=== PATIENT | female | born 1985 | race African-American/Black ===

== ENCOUNTER 2019-01-23 10:51 | Emergency (ER) | payer OTHER ==
[~2019-01-23] VITALS: Ht 157.5 cm; Wt 108.9 kg
[~2019-01-23 10:51] MED LIST: DOXY100C2 PO; NITR100C62 PO
[2019-01-23 11:13] VITALS: BP 179/81
--- NOTE | 2019-01-23 11:34 | PHYS DOC ---
Past Medical History Past Medical History: No Pertinent History Past Surgical History: No Surgical History Alcohol Use: Occasionally Drug Use: None Adult General Chief Complaint Chief Complaint: LOWER BACK PAIN OR INJURY HPI HPI Patient is a 33 year old female with no significant medical history who presents to the ED today complaining of 6 out of 10 sharp intermittent left low back pain nonradiating in nature that has been going on for month. Patient states the pain is worse when she is sitting on her left buttock. Patient states the pain is typically relieved by standing up and walking around. Patient denies any known injury. Denies any pain radiating to bilateral lower extremities, denies any numbness or tenderness to bilateral lower extremities, denies any loss of bowel bladder function. Review of Systems Review of Systems Constitutional: Denies fever or chills [] Eyes: Denies change in visual acuity, redness, or eye pain [] HENT: Denies nasal congestion or sore throat [] Respiratory: Denies cough or shortness of breath [] Cardiovascular: No additional information not addressed in HPI [] GI: Denies abdominal pain, nausea, vomiting, bloody stools or diarrhea [] : Denies dysuria or hematuria [] Musculoskeletal: Reports left low back pain Integument: Denies rash or skin lesions [] Neurologic: Denies headache, focal weakness or sensory changes [] All other systems were reviewed and found to be within normal limits, except as documented in this note. Allergies Allergies Allergies Coded Allergies Type Severity Reaction Last Updated Verified No Known Drug Allergies 10/18/13 No Physical Exam Physical Exam Constitutional: Well developed, well nourished, no acute distress, non-toxic appearance. [] HENT: Normocephalic, atraumatic, bilateral external ears normal, oropharynx moist, no oral exudates, nose normal. [] Eyes: PERRLA, EOMI, conjunctiva normal, no discharge. [] Neck: Normal range of motion, no tenderness, supple, no stridor. [] Cardiovascular:Heart rate regular rhythm, no murmur [] Lungs & Thorax: Bilateral breath sounds clear to auscultation [] Abdomen: Bowel sounds normal, soft, no tenderness, no masses, no pulsatile masses. [] Skin: Warm, dry, no erythema, no rash. [] Back: Diffuse paraspinal muscle tenderness the left lumbar spine, no midline lumbar spine tenderness, no CVA tenderness. Negative bilateral straight leg raises. Extremities: No tenderness, no cyanosis, no clubbing, ROM intact, no edema. [] Neurologic: Alert and oriented X 3, normal motor function, normal sensory function, no focal deficits noted. [] Psychologic: Affect normal, judgement normal, mood normal. [] Current Patient Data Vital Signs Vital Signs Date Time Temp Pulse Resp B/P (MAP) Pulse Ox O2 Delivery O2 Flow Rate FiO2 01/23/19 11:13 98.2 65 16 179/81 (113) 99 Room Air 98.2 Lab Values Laboratory Tests Test 01/23/19 11:17 Urine Color Yellow Urine Clarity Clear Urine pH 7.0 Urine Specific [place] 1.025 Urine Protein Negative mg/dL (NEG-TRACE) Urine Glucose (UA) Negative mg/dL (NEG) Urine Ketones (Stick) Negative mg/dL (NEG) Urine Blood Negative (NEG) Urine Nitrite Negative (NEG) Urine Bilirubin Negative (NEG) Urine Urobilinogen Dipstick 1.0 mg/dL (0.2 mg/dL) Urine Leukocyte Esterase Negative (NEG) Urine RBC 0 /HPF (0-2) Urine WBC 0 /HPF (0-4) Urine Squamous Epithelial Cells Mod /LPF Urine Bacteria 0 /HPF (0-FEW) POC Urine HCG, Qualitative Hcg negative (Negative) EKG EKG [] Radiology/Procedures Radiology/Procedures [] Course & Med Decision Making Course & Med Decision Making Pertinent Labs and Imaging studies reviewed. (See chart for details) This is a 33-year-old female patient presenting to the ED today complaining of left low back pain that began a month ago. Urine analysis is negative for infection. Patient then appears musculoskeletal. Will be discharged to home. Follow-up with PCP in 1-2 weeks. Dragon Disclaimer Dragon Disclaimer This electronic medical record was generated, in whole or in part, using a voice recognition dictation system. Departure Departure Impression: Primary Impression: Back pain Disposition: 01 HOME, SELF-CARE Condition: STABLE Referrals: UNKNOWN PCP NAME (PCP) Follow-up with your doctor in 1-2 weeks Patient Instructions: Back Pain, Adult Additional Instructions: You were evaluated in the emergency room for low back pain that appears musculoskeletal. Please take the prescribed medications as ordered. Follow-up with your doctor in 1-2 weeks. Come back to the ED at any point symptoms worsen. Scripts Methylprednisolone (MEDROL) 4 Mg Tab.ds.pk 1 PKG PO UD, #1 PKG Prov: NI MIRANDA APRN 01/23/19 Diclofenac Sodium (DICLOFENAC SODIUM) 50 Mg Tablet.dr 1 TAB PO BID, #20 TAB 0 Refills Prov: RUTHNI APRN 01/23/19 Cyclobenzaprine Hcl (CYCLOBENZAPRINE HCL) 10 Mg Tablet 1 TAB PO TID, #30 TAB Prov: NI MIRANDA APRN 01/23/19 Hydrocodone/Apap 5-325 (NORCO 5-325 TABLET) 1 Each Tablet 1 TAB PO Q6HRS, #8 TAB Prov: NI MIRANDA APRN 01/23/19 Problem Qualifiers Primary Impression: Back pain Back pain location: low back pain Chronicity: acute Back pain laterality: left Sciatica presence: without sciatica Qualified Codes: M54.5 - Low back pain NI MIRANDA APRN Jan 23, 2019 11:34
[2019-01-23 11:56] LABS: BILIRUBIN,URINE NEGATIVE (NEG); CLARITY,URINE CLEAR; COLOR,URINE YELLOW; NITRITE,URINE NEGATIVE (NEG); PROTEIN,URINE NEGATIVE (NEG-TRACE)
[2019-01-23 12:07] LABS: BACTERIA,URINE 0 /HPF (0-FEW); RBC,URINE 0 /HPF (0-2); SQUAMOUS EPITHELIAL CELL,UR MOD /LPF; WBC,URINE 0 /HPF (0-4)
[2019-01-23] MEDS ORDERED: HYDR-3164 PO (12:21)
[2019-01-23] MEDS ORDERED: METH4TAB2 PO (12:21)
[2019-01-23] MEDS ORDERED: CYCL10TA2 PO (12:21)
[2019-01-23] MEDS ORDERED: DICL50TA4 PO (12:21)
== END 2019-01-23 12:27 | disposition home or self-care (01) ==
LOC: ER 10:51
DX: M54.5 Low back pain (principal)
CPT/HCPCS: 81001; 81025; 99283

== ENCOUNTER 2019-06-11 09:50 | Emergency (ER) | payer MEDICAID, OTHER ==
[~2019-06-11] VITALS: Ht 160 cm; Wt 102.1 kg
[~2019-06-11 09:50] MED LIST changes: +CYCL10TA2 PO; +DICL50TA4 PO; +HYDR-3164 PO; +METH4TAB2 PO
[2019-06-11 10:14] VITALS: BP 157/121
[2019-06-11] MEDS ORDERED: FLUT9.9S NS (11:01)
[2019-06-11] MEDS ORDERED: BENZ100C PO (11:01)
--- NOTE | 2019-06-11 11:02 | PHYS DOC ---
Past Medical History Past Medical History: Hypertension Past Surgical History: No Surgical History Alcohol Use: Occasionally Drug Use: None Adult General Chief Complaint Chief Complaint: COUGH HPI HPI Patient is a 33 year old female with history of hypertension who presents to the ED today complaining of cough, ears popping and nasal congestion, symptoms began one week ago. Patient states the has similar symptoms too. Review of Systems Review of Systems Constitutional: Denies fever or chills [] Eyes: Denies change in visual acuity, redness, or eye pain [] HENT reports nasal congestion, bilateral ears popping, denies sore throat [] Respiratory: Reports cough, denies shortness of breath [] Cardiovascular: No additional information not addressed in HPI [] GI: Denies abdominal pain, nausea, vomiting, bloody stools or diarrhea [] : Denies dysuria or hematuria [] Musculoskeletal: Denies back pain or joint pain [] Integument: Denies rash or skin lesions [] Neurologic: Denies headache, focal weakness or sensory changes [] All other systems were reviewed and found to be within normal limits, except as documented in this note. Allergies Allergies Allergies Coded Allergies Type Severity Reaction Last Updated Verified No Known Drug Allergies 10/18/13 No Physical Exam Physical Exam Constitutional: Well developed, well nourished, no acute distress, non-toxic appearance. [] HENT: Normocephalic, atraumatic, bilateral external ears normal, oropharynx moist, no oral exudates, nose normal. [] Eyes: PERRLA, EOMI, conjunctiva normal, no discharge. [] Neck: Normal range of motion, no tenderness, supple, no stridor. [] Cardiovascular:Heart rate regular rhythm, no murmur [] Lungs & Thorax: Bilateral breath sounds clear to auscultation [] Abdomen: Bowel sounds normal, soft, no tenderness, no masses, no pulsatile masses. [] Skin: Warm, dry, no erythema, no rash. [] Back: No tenderness, no CVA tenderness. [] Extremities: No tenderness, no cyanosis, no clubbing, ROM intact, no edema. [] Neurologic: Alert and oriented X 3, normal motor function, normal sensory function, no focal deficits noted. [] Psychologic: Affect normal, judgement normal, mood normal. [] Current Patient Data Vital Signs Vital Signs Date Time Temp Pulse Resp B/P (MAP) Pulse Ox O2 Delivery O2 Flow Rate FiO2 06/11/19 10:14 98.5 103 16 157/121 (133) 98 Room Air 98.5 EKG EKG [] Radiology/Procedures Radiology/Procedures [] Course & Med Decision Making Course & Med Decision Making Pertinent Labs and Imaging studies reviewed. (See chart for details) This is a 33-year-old female patient presenting to the ED today with symptoms consistent of upper respiratory infection. Supportive care measures recommended. Discharged to home. Follow-up with PCP in 1-2 weeks. Dragon Disclaimer Dragon Disclaimer This electronic medical record was generated, in whole or in part, using a voice recognition dictation system. Departure Departure Impression: Primary Impression: Upper respiratory infection Additional Impression: Cough Disposition: HOME, SELF-CARE Condition: STABLE Referrals: NO PCP (PCP) Follow-up with your doctor in 1-2 weeks Patient Instructions: Upper Respiratory Infection, Adult, [id number] Additional Instructions: You were evaluated in the emergency room with symptoms consistent of an upper respiratory infection, we put you on medications that the typical available [id number]. Take them as prescribed. Follow-up with your own doctor in 1-2 weeks. Scripts Fluticasone Propionate (Flonase Allergy Relief) 9.9 Ml [place].susp 2 SPRAYS NS DAILY, #1 BOTTLE Prov: NI MIRANDA APRN 06/11/19 Benzonatate (TESSALON PERLE) 100 Mg Capsule 1 CAP PO TID, #30 CAP Prov: NI MIRANDA APRN 06/11/19 Problem Qualifiers Primary Impression: Upper respiratory infection URI type: unspecified URI Qualified Codes: J06.9 - Acute upper respiratory infection, unspecified NI MIRANDA APRN Jun 11, 2019 11:02
== END 2019-06-11 11:06 | disposition home or self-care (01) ==
LOC: ER 09:50
DX: J06.9 Acute upper respiratory infection, unspecified (principal); I10 Essential (primary) hypertension
CPT/HCPCS: 99283

== ENCOUNTER 2020-03-31 12:54 | Emergency (ER) | payer MEDICAID, OTHER ==
[~2020-03-31] VITALS: Ht 160 cm; Wt 115.0 kg
[~2020-03-31 12:54] MED LIST changes: +BENZ100C PO; +FLUT9.9S NS
[2020-03-31 13:18] VITALS: BP 199/94
--- NOTE | 2020-03-31 13:57 | PHYS DOC ---
Past Medical History Past Medical History: Hypertension Past Surgical History: No Surgical History Smoking Status: Never Smoker Alcohol Use: Occasionally Drug Use: None General Adult EDM: Chief Complaint: EARACHE/EAR PAIN HPI: HPI: Patient is a 34 year old [female who presents with right ear pain. States she has had this discomfort for the past couple days, had been seen at [facility] last week, given antibiotics for ear infection. States she finished this and also was told that her wisdom teeth on her right side were causing her discomfort. States she has made appointment for dentist, will see them on Sunday. States no change in her hearing. States no sore throat, no cough, no nausea vomiting. Review of Systems: Review of Systems: Constitutional: Denies fever or chills. [] HENT: Denies nasal congestion or sore throat. Complains of right ear discomfort [] Respiratory: Denies cough or shortness of breath. [] Neurologic: Denies headache, focal weakness or sensory changes. [] E Lymphatic: Denies swollen glands. [] Psychiatric: Denies depression or anxiety. [] Heart Score: Risk Factors: Risk Factors: DM, Current or recent (<one month) smoker, HTN, HLP, family history of CAD, obesity. Risk Scores: Score 0 - 3: 2.5% MACE over next 6 weeks - Discharge Home Score 4 - 6: 20.3% MACE over next 6 weeks - Admit for Clinical Observation Score 7 - 10: 72.7% MACE over next 6 weeks - Early Invasive Strategies Allergies: Allergies: Allergies Coded Allergies Type Severity Reaction Last Updated Verified No Known Drug Allergies 10/18/13 No Physical Exam: PE: Constitutional: Well developed, well nourished, no acute distress, non-toxic appearance. [] HENT: Normocephalic, atraumatic, bilateral external ears normal, oropharynx moist, no oral exudates, nose normal. No right posterior lower molar, wisdom tooth encroaching on gum tissue, with inflamed gum tissue surrounding. Tenderness on palpation. No abscess noted. No purulence noted. [] Eyes: PERRLA, EOMI, conjunctiva normal, no discharge. [] Neck: Normal range of motion, no tenderness, supple, no stridor. [] Current Patient Data: Vital Signs: Vital Signs Date Time Temp Pulse Resp B/P (MAP) Pulse Ox O2 Delivery O2 Flow Rate FiO2 6/17/20 13:18 98.4 74 14 199/94 (129) 99 Room Air 98.4 EKG: EKG: [] Radiology/Procedures: Radiology/Procedures: [] Course & Med Decision Making: Course & Med Decision Making Pertinent Labs and Imaging studies reviewed. (See chart for details) [] Discussed no concerns for ear infection is normal ear exam. Normal oropharynx. Exclusive of gum tissue overlying tooth. Believe this to be cause of patient's discomfort, advised patient to ensure she does keep her appointment with dentist on Sunday. Advised patient to continue taking NSAIDs for discomfort. Offered patient dental block for brief pain control, states she does not want at this time. Patient agreed with plan without further questions or concerns Anderson Disclaimer: Anderson Disclaimer: This electronic medical record was generated, in whole or in part, using a voice recognition dictation system. Departure Departure Impression: Primary Impression: Dentalgia Disposition: HOME, SELF-CARE Condition: GOOD Referrals: NO PCP (PCP) Patient Instructions: Dental Pain, Nicotine chewing gum Additional Instructions: As we discussed, make sure you keep her appoint with your dentist on Sunday. In the meantime, continue to take Tylenol or Profen or discomfort. You may take 3 of the [id number] ibuprofen every 6 hours or 4 every 8 hours for the discomfort. As we discussed, you may consider ice over your SAG, or even a small piece of ice in your gums on the back tooth to help relieve some the discomfort and swelling of the gum. You may also try some chewing gum, which may help her discomfort. Justicifation of Admission Dx: Justifications for Admission: Justification of Admission Dx: N/A NESS TORRES APRN Mar 31, 2020 13:57
== END 2020-03-31 14:01 | disposition home or self-care (01) ==
LOC: ER 12:54
DX: K08.89 Other specified disorders of teeth and supporting structures (principal); H92.01 Otalgia, right ear; I10 Essential (primary) hypertension
CPT/HCPCS: 99282